=== PATIENT | female | born 1935 | race Caucasian/White ===

== ENCOUNTER 2017-03-20 16:27 | Inpatient (IN) | payer MEDICARE, BC ==
[~2017-03-20] VITALS: Ht 152.4 cm; Wt 62.1 kg
[2017-03-20 16:30] VITALS: BP 112/65
[2017-03-20] MEDS ORDERED: HYDR25TA4 PO (16:46)
[2017-03-20] MEDS ORDERED: DONE10TA44 PO (16:46)
[2017-03-20] MEDS ORDERED: LOSA50TA21 PO (16:46)
[2017-03-20] MEDS ORDERED: MEMA28CA PO (16:46)
[2017-03-20] MEDS ORDERED: LEVO500T15 PO (16:46)
[2017-03-20] MEDS ORDERED: TEMAZEPAM 7.5 MG CAPSULE PO PRN (17:00)
[2017-03-20] MEDS ORDERED: MAGNESIUM HYDROXIDE 30 ML UDC PO PRN (17:00)
[2017-03-20] MEDS ORDERED: clonazePAM 0.5 MG TABLET PO PRN (17:00)
[2017-03-20] MEDS ORDERED: MAG HYDROX/AL HYDROX/SIMETH 30 ML UDC PO PRN (17:00)
[2017-03-20] MEDS ORDERED: ACETAMINOPHEN 325 MG TABLET PO PRN (17:00)
--- NOTE | 2017-03-20 18:39 | NUR ---
GPS RN ADMITTING NOTES: ADMITTED PATIENT FROM [facility], WHERE SHE STAYED OVERNIGHT, PER EMT. PATIENT ARRIVED TO THE UNIT 1700 ON A GURNEY. PATIENT IS ON 51/50 HOLD FOR GRAVE DISABILITY. PATIENT IS A/O X1, CONFUSED, DISORIENTED, MUMBLING INCOHERENTLY, NON-VERBAL MOST OF THE TIME. PATIENT'S BELONGINGS CHECKED FOR CONTRABAND. PATIENT IS UNABLE TO SIGN ADMISSION PAPERWORK. BODY CHECK DONE AND PICTURES DOCUMENTED IN THE CHART, MRSA SWAB DONE AND ORDERED. PATIENT'S DAUGHTER, CURT SIMPSON NOTIFIED. DR. RAMIREZ CALLED, ADMITTING ORDERS RECEIVED AND CARRIED OUT. DR. TEMPLE MADE AWARE TO RECONCILE THE MEDICATIONS. PATIENT'S VS STABLE AT THIS TIME, NO S/S OF DISTRESS, CONTINUE TO MONITOR THE PATIENT AND ENDORSE TO THE FINANCIAL PROCESSING CLERK ACCORDINGLY.
[2017-03-20 20:00] VITALS: BP 119/79
[2017-03-21 08:00] VITALS: BP 134/76
[2017-03-21 08:20] LABS: ALANINE AMINOTRANSFERASE 32 U/L (12-78); ALBUMIN 3.4 g/dL (3.4-5.0); ALKALINE PHOSPHATASE 101 U/L (46-116); ASPARTATE AMINOTRANSFERASE 22 U/L (15-37); BILIRUBIN,TOTAL 0.6 mg/dL (0.2-1.0); CALCIUM, SERUM 8.7 mg/dL (8.5-10.1); CARBON DIOXIDE 26 mmol/L (21-32); CHLORIDE 108 mmol/L (98-107); GLUCOSE 87 mg/dL (74-106); SODIUM SERUM 143 mmol/L (136-145); TOTAL PROTEIN, SERUM 6.6 g/dL (6.4-8.2); UREA NITROGEN, BLOOD 26 mg/dL (7-18)
[2017-03-21] MEDS: HYDROCHLOROTHIAZIDE 25 MG TABLET PO SCH (08:44)
[2017-03-21] MEDS: LOSARTAN POTASSIUM 50 MG TABLET PO SCH (08:44)
[2017-03-21] MEDS: busPIRone 5 MG TABLET PO SCH ×2 (13:29→16:19)
[2017-03-21 16:00] VITALS: BP 121/59
[2017-03-21] MEDS: DONEPEZIL 5 MG TABLET PO SCH ×2 (16:19→21:07)
[2017-03-21] MEDS: MEMANTINE HCL 5 MG TABLET PO SCH (16:19)
--- NOTE | 2017-03-21 16:23 | NUR ---
WIV-DR-WVYXY: GAVE KLONOPIN 0.25 MG PO DUE TO SEVERE ANXIETY UPON PT REQUEST AND WILL CONTINUE TO MONITOR FOR EFFECTIVENESS OF MEDICATION
[2017-03-21] MEDS ORDERED: LEVOFLOXACIN (500MG) 500 MG TABLET PO SCH (17:00)
[2017-03-21 20:12] VITALS: BP 137/73
[2017-03-21] MEDS: MIRTAZAPINE 15 MG TABLET PO SCH (21:06)
[2017-03-22 07:49] VITALS: BP 113/54
[2017-03-22] MEDS: MEMANTINE HCL 5 MG TABLET PO SCH ×2 (08:31→17:57)
[2017-03-22] MEDS: LOSARTAN POTASSIUM 50 MG TABLET PO SCH (08:32)
[2017-03-22] MEDS: busPIRone 5 MG TABLET PO SCH ×2 (08:32→17:57)
[2017-03-22] MEDS: HYDROCHLOROTHIAZIDE 25 MG TABLET PO SCH (08:32)
[2017-03-22 15:42] VITALS: BP 110/69
[2017-03-22 19:34] VITALS: BP 135/77
[2017-03-22] MEDS: MIRTAZAPINE 15 MG TABLET PO SCH (20:57)
[2017-03-22] MEDS: DONEPEZIL 5 MG TABLET PO SCH (21:04)
[2017-03-23 08:00] VITALS: BP 113/67
[2017-03-23] MEDS: busPIRone 5 MG TABLET PO SCH ×2 (08:23→16:28)
[2017-03-23] MEDS: MEMANTINE HCL 5 MG TABLET PO SCH ×2 (08:23→16:27)
[2017-03-23] MEDS: LOSARTAN POTASSIUM 50 MG TABLET PO SCH (08:23)
[2017-03-23] MEDS: HYDROCHLOROTHIAZIDE 25 MG TABLET PO SCH (08:24)
--- NOTE | 2017-03-23 13:24 | NUR ---
Initial Discharge Note: Patient lives home alone [address] [facility] ([phone]). telephone lineworker spoke to patient's daughter Cris Pires ([phone]) who confirmed that patient often stays home alone. Per daughter, she would want her mother to be placed. telephone lineworker will help form a safe and proper discharge.
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
[2017-03-23 16:00] VITALS: BP 130/64
[2017-03-23 20:03] VITALS: BP 131/87
[2017-03-23] MEDS: MIRTAZAPINE 15 MG TABLET PO SCH (20:45)
[2017-03-23] MEDS: DONEPEZIL 5 MG TABLET PO SCH (21:00)
[2017-03-24 08:00] VITALS: BP 110/58
[2017-03-24] MEDS: LOSARTAN POTASSIUM 50 MG TABLET PO SCH (08:43)
[2017-03-24] MEDS: HYDROCHLOROTHIAZIDE 25 MG TABLET PO SCH (08:44)
[2017-03-24] MEDS: busPIRone 5 MG TABLET PO SCH ×2 (08:44→17:04)
[2017-03-24] MEDS: MEMANTINE HCL 5 MG TABLET PO SCH ×2 (10:02→17:04)
--- NOTE | 2017-03-24 11:16 | NUR ---
auto body worker faxed initial review packet to [facility] [phone]) [address] [place] [address]. auto body worker will follow-up.
[2017-03-24 16:00] VITALS: BP 131/62
[2017-03-24 20:14] VITALS: BP 134/62
[2017-03-24] MEDS: MIRTAZAPINE 15 MG TABLET PO SCH (20:54)
[2017-03-24] MEDS: DONEPEZIL 5 MG TABLET PO SCH (21:06)
[2017-03-25 08:00] VITALS: BP 107/66
[2017-03-25] MEDS: busPIRone 5 MG TABLET PO SCH ×2 (09:36→16:15)
[2017-03-25] MEDS: LOSARTAN POTASSIUM 50 MG TABLET PO SCH (09:36)
[2017-03-25] MEDS: MEMANTINE HCL 5 MG TABLET PO SCH ×2 (09:36→16:15)
[2017-03-25] MEDS: HYDROCHLOROTHIAZIDE 25 MG TABLET PO SCH (09:36)
--- NOTE | 2017-03-25 09:37 | NUR ---
packing room worker followed up with [facility] ([phone]) [address] [place] [address] and they have no beds available at the moment.
--- NOTE | 2017-03-25 09:38 | NUR ---
shore worker faxed initial review packet to [facility] [address] [place] [address] ([phone]). shore worker will follow-up.
[2017-03-25 16:19] VITALS: BP 116/71
[2017-03-25 20:00] VITALS: BP 115/67
[2017-03-25] MEDS: MIRTAZAPINE 15 MG TABLET PO SCH (20:29)
[2017-03-25] MEDS: DONEPEZIL 5 MG TABLET PO SCH (21:20)
--- NOTE | 2017-03-26 07:03 | NUR ---
RN GPS NOTES BOTH LEGS SCABS NOTED AND LEFT KNEE ABRASIONS NOTED PICTURE TAKEN AND PLACED IN THE CHART.ENDORSE TO NEXT SHIFT FOR CONTINUITY OF CARE . Addendum: 03/26/17 at 1853 by LINH RHODES RN DOCUMENTION IS NOT FOR THIS PATIENT
[2017-03-26 08:00] VITALS: BP 114/63
[2017-03-26] MEDS: HYDROCHLOROTHIAZIDE 25 MG TABLET PO SCH (08:02)
[2017-03-26] MEDS: MEMANTINE HCL 5 MG TABLET PO SCH ×2 (08:02→16:32)
[2017-03-26] MEDS: busPIRone 5 MG TABLET PO SCH ×2 (08:03→16:31)
[2017-03-26] MEDS: LOSARTAN POTASSIUM 50 MG TABLET PO SCH (08:03)
[2017-03-26 16:00] VITALS: BP_SYST 108; BP_SYST 132; BP_DIAS 71; BP_DIAS 82
[2017-03-26] MEDS: MIRTAZAPINE 15 MG TABLET PO SCH (19:39)
[2017-03-26 20:00] VITALS: BP 100/64
[2017-03-26] MEDS: DONEPEZIL 5 MG TABLET PO SCH (21:37)
--- NOTE | 2017-03-27 07:30 | NUR ---
GPS RN: RECEIVED PATIENT IN BED, CONFUSED AND DISORIENTED. NO S/S OF ACUTE DISTRESS, NO S/S OF PAIN OR DISCOMFORT, VS STABLE, RESPIRATION EVEN AND UNLABORED, SKIN WARM TO TOUCH, ALL BED IN A LOW POSITION AND LOCKED. BED ALARM IS ON, SR ARE UP X2 FOR SAFETY. PATIENT NOTED WITH PURPLE DISCOLORATION ON HER LEFT CHEEK. WILL TAKE PICTURES AND DOCUMENT IN THE CHART.
[2017-03-27 08:00] VITALS: BP 139/83
[2017-03-27] MEDS: MEMANTINE HCL 5 MG TABLET PO SCH ×2 (08:37→16:36)
[2017-03-27] MEDS: HYDROCHLOROTHIAZIDE 25 MG TABLET PO SCH (08:37)
[2017-03-27] MEDS: LOSARTAN POTASSIUM 50 MG TABLET PO SCH (08:37)
[2017-03-27] MEDS: busPIRone 5 MG TABLET PO SCH ×2 (08:38→16:36)
[2017-03-27 16:13] VITALS: BP 100/58
[2017-03-27 20:00] VITALS: BP 103/64
[2017-03-27] MEDS: MIRTAZAPINE 15 MG TABLET PO SCH (20:03)
--- NOTE | 2017-03-27 20:20 | NUR ---
GPS/RN NOTE: PATIENT AWAKE, ALERT, UP ON THE ROQUE-CHAIR. NO APPARENT DISTRESS NOTED.
[2017-03-27] MEDS: DONEPEZIL 5 MG TABLET PO SCH (22:49)
[2017-03-28 08:00] VITALS: BP 106/55
[2017-03-28] MEDS: LOSARTAN POTASSIUM 50 MG TABLET PO SCH (09:00)
[2017-03-28] MEDS: HYDROCHLOROTHIAZIDE 25 MG TABLET PO SCH (09:00)
[2017-03-28] MEDS: MEMANTINE HCL 5 MG TABLET PO SCH ×3 (09:00→17:54)
[2017-03-28] MEDS: busPIRone 5 MG TABLET PO SCH ×3 (09:00→17:54)
--- NOTE | 2017-03-28 09:00 | NUR ---
gps rn notes received patient in the room, sleeping, arousal when called name or torched, no respiratory distress, no acute distress, v/s stable, held medication, assist turn and reposition q 2 hr, safety precaution maintained all the time, both medical, and psych md's aware of. call huang near to reach, side rails up x3. continued monitoring for safety.
[2017-03-28] MEDS: BOOST PLUS FOOD-VANILLA 237 ML BOX PO SCH ×2 (09:11→17:55)
[2017-03-28] MEDS ORDERED: Z GUARD REMEDY 2 OZ OINT TP PRN (15:30)
[2017-03-28 16:00] VITALS: BP 108/65
[2017-03-28 19:42] VITALS: BP 110/67
--- NOTE | 2017-03-28 19:45 | NUR ---
GPS/RN NOTE: PATIENT LYING IN BED, RESTING, COMFORTABLE, NO ACUTE DISTRESS NOTED.
[2017-03-28] MEDS: DONEPEZIL 5 MG TABLET PO SCH (21:40)
[2017-03-29 08:00] VITALS: BP 108/73
[2017-03-29] MEDS: HYDROCHLOROTHIAZIDE 25 MG TABLET PO SCH (08:53)
[2017-03-29] MEDS: MEMANTINE HCL 5 MG TABLET PO SCH ×2 (08:54→16:50)
[2017-03-29] MEDS: busPIRone 5 MG TABLET PO SCH ×2 (08:54→16:50)
[2017-03-29] MEDS: LOSARTAN POTASSIUM 50 MG TABLET PO SCH (08:55)
[2017-03-29] MEDS ORDERED: SERTRALINE HCL 25 MG TABLET PO SCH (09:00)
[2017-03-29] MEDS: BOOST PLUS FOOD-VANILLA 237 ML BOX PO SCH ×2 (09:02→16:51)
[2017-03-29 16:00] VITALS: BP 133/65
[2017-03-29 20:06] VITALS: BP 145/69
[2017-03-29] MEDS: DONEPEZIL 5 MG TABLET PO SCH (21:22)
[2017-03-30 08:00] VITALS: BP 142/75
[2017-03-30] MEDS: HYDROCHLOROTHIAZIDE 25 MG TABLET PO SCH (08:48)
[2017-03-30] MEDS: BOOST PLUS FOOD-VANILLA 237 ML BOX PO SCH (08:48)
[2017-03-30 08:49] VITALS: BP 142/75
[2017-03-30] MEDS: busPIRone 5 MG TABLET PO SCH (08:49)
[2017-03-30] MEDS: LOSARTAN POTASSIUM 50 MG TABLET PO SCH (08:49)
[2017-03-30] MEDS: MEMANTINE HCL 5 MG TABLET PO SCH (08:49)
[2017-03-30] MEDS ORDERED: SERTRALINE HCL 25 MG TABLET PO SCH (09:00)
--- NOTE | 2017-03-30 14:12 | NUR ---
Discharge Note: Patient will be discharged to [facility] [address] [place] [address]. . Via med response. Patient's daughter Cris Pires ([phone]) has been notified. Patient's daughter was agreeable with the discharge plan. Patient's mood and affect are appropriate. Patient denies suicidal and homicidal ideations. Patient will follow-up with psychiatrist Dr. Lainez , at the facility. forestry conservation worker informed [facility] social media developer Jessica Cazares ([phone]/ cell: [phone]) to inform her of patient's discharge. Facilitated info to IDT team who are in agreement with discharge arrangement. The multidisciplinary exitcare form was done, printed, signed, and given to the patient.
--- NOTE | 2017-03-30 15:52 | NUR ---
DISCHARGE NOTES/ PATIENT DISCHARGE FROM [facility] GOING SNF. PATIENT A/O X1/2. NO RESPIRATORY DISTRESS, PATIENT MED COMPLIANT, V/S STABLE, MEDICALLY STABLE, TOTAL CARE. PATIENT DENIED SI/HI/AVH AT THIS TIME. MED RECONCILIATION, AND DISCHARGE ORDER REVIEWED AND EXPLAINED TO. REPORT GIVEN SNF RN. RN VERBALIZED UNDERSTANDING. BELONGING RETURNED BACK TO THE PATIENT. PICTURE TAKEN, PATIENT REFUSED SIGN PAPERWORK. DR EMERY, AND [employer] WILL FOLLOW PATIENT . PATIENT WEIGHT SHIFTER BY AMBULANCE. PATIENT DAUGHTER [facility] AWARE OF DISCHARGE PHONE # [phone].
== END 2017-03-30 15:52 | DRG 885 ==
LOC: GPS 16:27
PROVIDERS: ADMIT Psychiatry & Neurology Psychiatry; ATTEND Psychiatry & Neurology Psychiatry
DX: F39 Unspecified mood [affective] disorder (principal); F02.80 Dementia in other diseases classified elsewhere, unspecified severity, without behavioral disturbance, psychotic disturbance, mood disturbance, and anxiety; G30.9 Alzheimer's disease, unspecified; F41.9 Anxiety disorder, unspecified; F01.50 Vascular dementia, unspecified severity, without behavioral disturbance, psychotic disturbance, mood disturbance, and anxiety; I10 Essential (primary) hypertension; Z86.73 Personal history of transient ischemic attack (TIA), and cerebral infarction without residual deficits; Z73.6 Limitation of activities due to disability; Z87.440 Personal history of urinary (tract) infections; F29 Unspecified psychosis not due to a substance or known physiological condition
CPT/HCPCS: 36415; 80053-TC; 87081-TC

== ENCOUNTER 2017-07-02 23:47 | Inpatient (IN) | payer MEDICARE, BC ==
[~2017-07-02] VITALS: Ht 147.3 cm; Wt 49.9 kg
[~2017-07-02 23:47] MED LIST: HYDR25TA4 PO; LEVO500T75 PO; LOSA50TA21 PO
--- NOTE | 2017-07-03 00:24 | NUR ---
pt sent fr [facility] for abnormal lab, elevated BUN & Cr. pt nonverbal w/ resp even & unlabored, responds to painful stimuli w/ nad noted. On continuous pulse-ox w/ cardiac monitoring.
[2017-07-03 00:26] LABS: BASOPHILS % (AUTO) 0.1 % (0.0-2.0); EOSINOPHILS % (AUTO) 0.7 % (0.0-6.0); HEMATOCRIT 29 % (33-45); HEMOGLOBIN 10.1 g/dL (11.5-14.8); LYMPHOCYTES # (AUTO) 0.8 /CMM (0.8-4.8); LYMPHOCYTES % (AUTO) 15.2 % (20.0-44.0); MEAN CORPUSCULAR HEMOGLOBIN 31 PG (26.0-33.0); MEAN CORPUSCULAR HGB CONC 35 g/dl (31.0-36.0); MEAN CORPUSCULAR VOLUME 90 fL (82-100); MONOCYTES # (AUTO) 0.5 /CMM (0.1-1.30); MONOCYTES % (AUTO) 9.9 % (2.0-12.0); NEUTROPHILS # (AUTO) 3.9 /CMM (1.8-8.9); NEUTROPHILS % (AUTO) 74.1 % (43.0-81.0); PLATELET COUNT (AUTO) 156 /CMM (150-450); RDW COEFFICIENT OF VARIATION 13.6 (11.5-15.0); RED BLOOD CELL COUNT(AUTO) 3.26 MIL/uL (4.0-5.2); WHITE BLOOD COUNT (AUTO) 5.3 K/uL (4.3-11.0)
[2017-07-03 00:38] LABS: CALCIUM, SERUM 8.4 mg/dL (8.5-10.1); CARBON DIOXIDE 27 mmol/L (21-32); CHLORIDE 111 mmol/L (98-107); GLUCOSE 99 mg/dL (74-106); POTASSIUM 3.2 mmol/L (3.5-5.1); SODIUM SERUM 146 mmol/L (136-145); UREA NITROGEN, BLOOD 29 mg/dL (7-18)
[2017-07-03 00:48] LABS: ALANINE AMINOTRANSFERASE 23 U/L (12-78); ALBUMIN 2.8 g/dL (3.4-5.0); ALKALINE PHOSPHATASE 98 U/L (46-116); ASPARTATE AMINOTRANSFERASE 26 U/L (15-37); BILIRUBIN,DIRECT 0.1 mg/dL (0.0-0.2); BILIRUBIN,TOTAL 0.4 mg/dL (0.2-1.0); TOTAL PROTEIN, SERUM 6.6 g/dL (6.4-8.2); TROPONIN I 0.018 ng/mL (0.00-0.056)
[2017-07-03] MEDS ORDERED: ACETAMINOPHEN 325 MG TABLET PO PRN (01:30)
[2017-07-03] MEDS ORDERED: MAGNESIUM HYDROXIDE 30 ML UDC PO PRN (01:30)
[2017-07-03] MEDS ORDERED: MAG HYDROX/AL HYDROX/SIMETH 30 ML UDC PO PRN (01:30)
[2017-07-03] MEDS ORDERED: Z GUARD REMEDY 2 OZ OINT TP PRN (01:30)
[2017-07-03] MEDS ORDERED: ZOLPIDEM TARTRATE 5 MG TABLET PO PRN (01:30)
[2017-07-03] MEDS ORDERED: MORPHINE SULFATE INJ 2 MG/ML DISP.SYRIN IV PRN (01:30)
[2017-07-03] MEDS ORDERED: ONDANSETRON HCL/PF 4 MG/2 ML VIAL IVP PRN (01:30)
[2017-07-03] MEDS ORDERED: HYDROCODONE/APAP 5/325MG 1 EACH TABLET PO PRN (01:30)
[2017-07-03] MEDS ORDERED: HYDROCODONE/APAP 10/325MG 1 EA TABLET PO PRN (01:30)
--- NOTE | 2017-07-03 01:43 | NUR ---
pt asleep in bed w/ resp even & unlabored, nad noted. On continuous monitoring.
--- NOTE | 2017-07-03 02:03 | NUR ---
Sent to CT.
--- NOTE | 2017-07-03 03:00 | NUR ---
REPORT GIVEN TO ELEANOR. PATEL FOR TRANSFER
[2017-07-03 03:30] VITALS: BP 122/77
--- NOTE | 2017-07-03 03:30 | NUR ---
RN NOTES RECEIVED PATIENT FROM ER WITH DX OF HEADACHE. PATIENT IS ALERT AND ORIENTED X1, UNABLE TO VERBALIZE NEEDS, WITH HISTORY OF DEMENTIA, NO SOB, TOLERATING 2LPM VIA NC, SPO2 95%, ON AUSCULTATION, LUNG SOUNDS ARE CLEAR, ABDOMEN SOFT AND NON-TENDER, ACTIVE BOWEL SOUNDS, PATIENT MOANING, INCOHERENT, INCONTINENT OF BOWEL AND BLADDER, SKIN ASSESSMENT PERFORMED, GIVEN SPONGE BATH UPON ARRIVAL, UNABLE TO ORIENT TO ROOM AND USE OF CALL LIGHT, REPOSITIONED FOR COMFORT, BED ALARM TURNED ON, WILL CONTINUE TO MONITOR.
--- NOTE | 2017-07-03 04:17 | NUR ---
RN NOTES CLARIFIED WITH DR. LARSEN, NO IV FLUIDS
[2017-07-03 07:02] VITALS: BP 122/77
[2017-07-03 08:00] VITALS: BP 128/67
--- NOTE | 2017-07-03 08:00 | NUR ---
RN-NOTES RECEIVED PATIENT SLEEPING IN HER BED WITH BREATHING EVEN AND NONLABORED. ON THERAPY AT 3 L/MIN. VIA N/C. NOTED PATIENT WITH EPISODE OF COUGHING,BILATERAL LUNGS CLEAR AT THIS TIME.. REPOSITIONED PATIENT. WILL CONT. MONITORING.
[2017-07-03] MEDS: IV D5/0.45 NACL 1,000 ML IV PRN ×2 (10:21→23:44)
[2017-07-03] MEDS: POTASSIUM CL. PREMIX PERIPHER. 50 ML IV SCH ×4 (10:38→15:33)
[2017-07-03 16:00] VITALS: BP 114/67
--- NOTE | 2017-07-03 19:25 | NUR ---
MS RN OPENING NOTES: RECEIVED PT IN BED ASLEEP AT THIS TIME. PT APPEARS TO BE LETHARGIC. PT ON 2LPM VIA NC AND IS TOLERATING WELL. PT IS NON-VERBAL. SCD PUMPS IN PLACE. PT HAS IV BEING INFUSED WITH D5 1/2 NS AT 100ML/HR. CALL LIGHT WITHIN PT'S REACH. BED KEPT IN LOW, LOCKED POSITION, AND SIDE RAILS X 2UP. WILL CONTINUE TO MONITOR PT.
--- NOTE | 2017-07-03 19:56 | NUR ---
RN-NOTES PATIENT SLEEPING IN HER BED NO ACUTE DISTRESS NOTED. PATIENT ON IV FLUID AT 100ML/HR INFUSING WELL. WELL TOLERATED. IV SITE ON LEFT ARM. NO S/SX OF COMPLICATION NOTED ON IV SITE. ENDORSE TO NIGHT NURSE FOR CONTINUITY OF CARE. UNABLE TO COLLECT URINE THIS SHIFT. ENDORSE TO INCOMING NURSE FOR COLLECTION OF URINE FOR URINALYSIS ORDER.
[2017-07-03 20:00] VITALS: BP 135/66
--- NOTE | 2017-07-04 00:05 | NUR ---
MS RN NOTES: PT KEEPS REMOVING NASAL CANNULA. 02 SAT WITHOUT NC IS 92%. WILL CONTINUE TO MONITOR.
[2017-07-04 05:44] LABS: APPEARANCE,URINE CLOUDY (CLEAR); BILIRUBIN,URINE NEGATIVE (NEGATIVE); BLOOD, URINE NEGATIVE Ery/uL (NEGATIVE); COLOR,URINE YELLOW (YELLOW); KETONES,URINE NEGATIVE (NEGATIVE); LEUKOCYTE ESTERASE ,URINE NEGATIVE (NEGATIVE); NITRITE, URINE POSITIVE (NEGATIVE); PROTEIN,URINE 1+ mg/dl (NEGATIVE); UGLUCOSE NEGATIVE (NEGATIVE)
[2017-07-04 06:06] LABS: BACTERIA,URINE Few /HPF (None Seen); RBC,URINE NONE SEEN /HPF (0-2); SQUAMOUS EPITHELIAL CELL,UR Rare /HPF (None Seen)
[2017-07-04 06:07] LABS: URINE AMORPHOUS URATE Moderate /HPF (None Seen)
--- NOTE | 2017-07-04 07:10 | NUR ---
MS RN CLOSING NOTES: ALL NEEDS WERE ATTENDED AND ANTICIPATED FOR. PT HAS BEEN LETHARGIC THROUGHOUT MY SHIFT. PT ALSO HAS BEEN NON-VERBAL. PT SATURATING ABOVE 90% WITHOUT NC. PT HAS IV BEING INFUSED WITH D5 1/2 NS AT 100ML/HR. URINE WAS OBTAINED AND SENT. CALL LIGHT WITHIN PT'S REACH. BED KEPT IN LOW, LOCKED POSITION, AND SIDE RAILS X 2UP. ENDORSED TO AM NURSE FOR BJ.
[2017-07-04 07:54] LABS: BASOPHILS % (AUTO) 0.1 % (0.0-2.0); EOSINOPHILS % (AUTO) 0.2 % (0.0-6.0); HEMATOCRIT 28 % (33-45); HEMOGLOBIN 9.9 g/dL (11.5-14.8); LYMPHOCYTES # (AUTO) 0.7 /CMM (0.8-4.8); MEAN CORPUSCULAR HEMOGLOBIN 34 PG (26.0-33.0); MEAN CORPUSCULAR HGB CONC 36 g/dl (31.0-36.0); MEAN CORPUSCULAR VOLUME 94 fL (82-100); MONOCYTES # (AUTO) 0.6 /CMM (0.1-1.30); MONOCYTES % (AUTO) 8.6 % (2.0-12.0); NEUTROPHILS # (AUTO) 5.9 /CMM (1.8-8.9); NEUTROPHILS % (AUTO) 81.1 % (43.0-81.0); PLATELET COUNT (AUTO) 164 /CMM (150-450); RDW COEFFICIENT OF VARIATION 13.2 (11.5-15.0); RED BLOOD CELL COUNT(AUTO) 2.92 MIL/uL (4.0-5.2); WHITE BLOOD COUNT (AUTO) 7.3 K/uL (4.3-11.0)
--- NOTE | 2017-07-04 07:57 | NUR ---
MS RN OPENING NOTE PATIENT IS ASLEEP, AWAKEN TO LIGHT PAIN ONLY. PATIENT APPEARS TO BE LETHARGIC. CHEST IS RISING EQUALLY BILATERALLY. SPO2 IS 94% ON ROOM AIR. ALL NEEDS ARE MET AT THIS TIME. PATIENT IS IN BED. BED IS LOCKED IN THE LOWEST POSITION, SIDE RAILS ARE P X3, BED ALARM IS ON. CALL LIGHT WITHIN REACH. PATIENT EDUCATED TO USE THE CALL LIGHT TO CALL FOR ASSISTANCE. PATIENT'S ROOM IS CLOSE TO NURSES STATION FOR VISUAL ACCESSIBILITY AT ALL TIMES. WILL ROUND HOURLY TO CHECK ON PATIENT. WILL CONTINUE TO ASSESS/MONITOR THROUGHOUT THE SHIFT.
[2017-07-04 08:00] VITALS: BP 109/69
[2017-07-04 08:40] LABS: CALCIUM, SERUM 8.4 mg/dL (8.5-10.1); CARBON DIOXIDE 27 mmol/L (21-32); CHLORIDE 110 mmol/L (98-107); CREATININE 0.9 mg/dL (0.6-1.3); GLUCOSE 143 mg/dL (74-106); MAGNESIUM 1.8 mg/dL (1.8-2.4); POTASSIUM 3.3 mmol/L (3.5-5.1); SODIUM SERUM 146 mmol/L (136-145); UREA NITROGEN, BLOOD 20 mg/dL (7-18)
--- NOTE | 2017-07-04 09:13 | NUR ---
DR DANIELS AT THE BEDSIDE. RECEIVED AN ORDER FOR ABG, NPO AND TO CHANGE THE CODE STATUS TO DNR. WILL FOLLOW THEORDERS RECEIVED.
--- NOTE | 2017-07-04 10:30 | NUR ---
POTASSIUM NOT AVALIBLE IN THE OMNICELL. CALLED PHARMACY
--- NOTE | 2017-07-04 10:40 | NUR ---
PER PHARMACY THE POTASSIUM WILL BE DELIVERED AND PLACED IN THE CASETTE SHORTLY. WILL ADMINISTER ONCE AVAILABLE.
--- NOTE | 2017-07-04 11:20 | NUR ---
POTASSIUM STILL NOT AVAILABLE ON THE FLOOR
--- NOTE | 2017-07-04 11:45 | NUR ---
ADMINISTERING POTASSIUM ONCE AVAILABLE
[2017-07-04] MEDS: POTASSIUM CL. PREMIX PERIPHER. 50 ML IV SCH ×4 (11:47→16:02)
[2017-07-04] MEDS: IV D5/0.45 NACL 1,000 ML IV PRN (11:50)
[2017-07-04 12:26] LABS: ABG BASE EXCESS 1.1 mmol/L; ABG OXYGEN SATURATION 89.2 % (92.0-98.5); ABG PO2 52.7 mmHg (75.0-100.0); AaDO2 59.9 mmHg; MetHb 0.4 % (0.0-1.5); O2Hb 88.8 % (94.0-97.0); SITE, ABG Left Radial; VENT MODE, BG ROOM AIR
[2017-07-04] MEDS ORDERED: K PHOS NEUTRAL 250 MG TABLET PO ONE (13:00)
[2017-07-04] MEDS: TOBRAMYCIN/DEXAMETH OPHTH DORPS 2.5 ML BOTTLE EACHEYE SCH ×3 (13:17→23:16)
--- NOTE | 2017-07-04 14:10 | NUR ---
Patient removed nasal cannula. Desaturated to 91% on RA. Nasal cannula reapplied.
--- NOTE | 2017-07-04 14:52 | NUR ---
Patient removed nasal cannula. Desaturated to 89% on RA. Nasal cannula reapplied. Currently saturated 95% on 2 L
--- NOTE | 2017-07-04 15:00 | NUR ---
Patient removed nasal cannula. Patient is unable to comprehend teachings not to remove the nasal cannula. All needs are met. Patient removes the nasal cannula as soon as applied.
--- NOTE | 2017-07-04 15:00 | NUR ---
Received a telephone order for Potassium Phosphate 15mmol replacement in two equally divided doses. Read back and verified.
--- NOTE | 2017-07-04 15:18 | NUR ---
REPORTED PATIENT'S ABG RESULTS TO DR. DANIELS OVER THE PHONE. REPORTED TO THAT THE PATIENT KEEPS REMOVING THE NASAL CANNULA LEADING TO DESATURATION. RECEIVED AN ORDER TO PLACE BILATERAL SOFT MITTENS. PER DR. DANIELS YCH CONSULT TO BE CONDUCTED BY DR. RAMIREZ. ORDERS READ BACK AND VERIFIED. WILL FOLLOW ORDERED.
[2017-07-04 16:00] VITALS: BP 118/61
--- NOTE | 2017-07-04 16:08 | NUR ---
PATIENT REMOVED NASAL CANNULA. DESATURATED TO 90% ON RA. BILATERAL MITTENS APPLIED TO PREVENT THE PATIENT FROM REMOVING THE NASAL CANNULA.
[2017-07-04] MEDS: POTASSIUM PHOSPHATE MM 7.5 MMOL in IV D5W 100 ML IV SCH ×2 (18:48→23:16)
--- NOTE | 2017-07-04 19:10 | NUR ---
MS RN CLOSING NOTE BEDSIDE SBAR REPORT GIVEN TO THE ELECTRIC GAS APPLIANCES DEMONSTRATOR NURSE. PATIENT IS ASLEEP, AWAKEN TO LIGHT PAIN ONLY. PATIENT APPEARS TO BE LETHARGIC. CHEST IS RISING EQUALLY BILATERALLY. SPO2 IS 94% ON ROOM AIR. ALL NEEDS ARE MET AT THIS TIME. PATIENT IS IN BED. BED IS LOCKED IN THE LOWEST POSITION, SIDE RAILS ARE P X3, BED ALARM IS ON. SOFT MITTENS APPLIED. PATIENT CHECKED EVERY 15MINUTES FOR SAFETY/COMFORT. CALL LIGHT WITHIN REACH. PATIENT EDUCATED TO USE THE CALL LIGHT TO CALL FOR ASSISTANCE. PATIENT'S ROOM IS CLOSE TO NURSES STATION FOR VISUAL ACCESSIBILITY AT ALL TIMES. ROUNDED HOURLY. ALL DUE MEDICATIONS ADMINISTERED ORDERED. ENDORSED TO THE ELECTRIC GAS APPLIANCES DEMONSTRATOR TO ADMINISTER POTASSIUM PHOSPHATE WHEN DUE. ENDORSED TO ELECTRIC GAS APPLIANCES DEMONSTRATOR NURSE FOR BJ.
--- NOTE | 2017-07-04 19:20 | NUR ---
MS RN OPENING NOTES: RECEIVED PT IN BED. PT APPEARS TO BE LETHARGIC. PT NON-VERBAL. PT ON 2LPM VIA NC AND IS TOLERATING WELL. PT HAS R FOREARM IV BEING INFUSED WITH POTASSIUM AT THE MOMENT. NOTED PT ON BILATERAL SOFT MITTEN RESTRAINTS. CALL LIGHT WITHIN PT'S REACH. BED KEPT IN LOW, LOCKED POSITION, AND SIDE RAILS X 3 UP. WILL CONTINUE TO MONITOR PT.
[2017-07-04 20:45] VITALS: BP 122/71
[2017-07-05] MEDS: TOBRAMYCIN/DEXAMETH OPHTH DORPS 2.5 ML BOTTLE EACHEYE SCH ×6 (01:03→20:44)
[2017-07-05] MEDS: IV D5/0.45 NACL 1,000 ML IV PRN ×2 (06:08→20:44)
--- NOTE | 2017-07-05 07:05 | NUR ---
ms rn initial notes Received patient in bed, asleep, head of bed elevated, on 02 @ 2lpm via NC with 02 saturation of 94%. Bilateral hand mittens on. no SOB or distress noted. on NPO right forearm IV access with IVF infusing well. no facial grimace noted. Kept patient clean and comfortable in bed, call light with in patient reach. Will continue to monitor accordingly.
--- NOTE | 2017-07-05 07:45 | NUR ---
MS RN CLOSING NOTES: ALL NEEDS WERE ATTENDED AND ANTICIPATED FOR. PT KEPT CLEAN, DRY, AND COMFORTABLE. PT STILL APPEARS TO BE LETHARGIC. PT REMAINED NON-VERBAL. PT ON 2LPM VIA NC AND IS TOLERATING WELL. PT HAS R FOREARM IV BEING INFUSED WITH D5 1/2 NS AT 100ML/HR. PT ON BILATERAL SOFT MITTEN RESTRAINTS. 2 HOUR CHECKS HAVE BEEN MADE. CALL LIGHT WITHIN PT'S REACH. BED KEPT IN LOW, LOCKED POSITION, AND SIDE RAILS X 3 UP. ENDORSED TO AM NURSE FOR BJ.
[2017-07-05 08:00] VITALS: BP_SYST 116; BP_SYST 149; BP_DIAS 74; BP_DIAS 75
[2017-07-05 09:37] LABS: CALCIUM, SERUM 8.3 mg/dL (8.5-10.1); CARBON DIOXIDE 27 mmol/L (21-32); CHLORIDE 108 mmol/L (98-107); CREATININE 0.9 mg/dL (0.6-1.3); GLUCOSE 131 mg/dL (74-106); PHOSPHORUS 2.3 mg/dL (2.5-4.9); POTASSIUM 3.7 mmol/L (3.5-5.1); SODIUM SERUM 141 mmol/L (136-145); UREA NITROGEN, BLOOD 14 mg/dL (7-18)
[2017-07-05] MEDS ORDERED: Sodium Phosphate 15 MMOL in IV D5W 250 ML IV ONE (13:30)
[2017-07-05 16:00] VITALS: BP 119/62
[2017-07-05 19:11] LABS: THYROID STIMULATING HORMONE 0.706 uIU/mL (0.358-3.74)
--- NOTE | 2017-07-05 19:23 | NUR ---
RN NOTES A/O X 1, NON VERBAL, PT IN STABLE CONDITION, NO S/S OF DISTRESS. SAFETY MEASURES ARE IN PLACE, CALL LIGHT IS IN REACH. WILL CONTINUE TO MONITOR.
--- NOTE | 2017-07-05 19:28 | NUR ---
ms rn closing notes All needs provided, attended, and anticipated. kept patient clean and comfortable in bed, call light with in patient reach, endorsed to next shift RN to continue care.
[2017-07-05 20:00] VITALS: BP 115/63
[2017-07-06] MEDS: TOBRAMYCIN/DEXAMETH OPHTH DORPS 2.5 ML BOTTLE EACHEYE SCH ×6 (01:24→20:12)
--- NOTE | 2017-07-06 06:38 | NUR ---
MS RN CLOSING NOTES IN BED, PATIENT RESPONSIVE TO TOUCH AND TACTILE STIMULATION, NON VERBAL, OPEN EYES, RESPIRATIONS EVEN AND UNLABORED. NOT IN S/S DISTRESS. ON 2LPM VIA NC 02 SAT 96% STABLE CONDITION. KEPT CLEAN AND DRY AND COMFORTABLE, ALL NURSING CARE RENDERED. NEEDS ATTENDED AND ANTICIPATED, FREQUENT VISUAL CHECK DONE FOR SAFETY EVERY 2 HOURS. REPOSITIONED Q2H. ON LOW BED AT ALL TIMES TO ENSURE SAFETY. SAFE HAZARD FREE ENVIRONMENT PROVIDED. CALL LIGHT WITHIN EASY TO REACH. WILL ENDORSE NEXT SHIFT CONTINUITY OF CARE.
--- NOTE | 2017-07-06 07:10 | NUR ---
ms rn initial notes Received patient in bed, asleep, head of bed elevated, no SOB or distress noted. On 02 @ 2LPM via NC with 02 sat of 98%. On bilateral hand mittens due to patient is removing her IV and 02 out. IV intact and patent with IVF infusing well. Kept patient clean and comfortable in bed, call light with in patient reach, will continue to monitor accordingly.
[2017-07-06 08:00] VITALS: BP 125/74
[2017-07-06] MEDS ORDERED: POTASSIUM PHOSPHATE MM 15 MMOL in IV D5W 250 ML IV SCH (13:00)
[2017-07-06] MEDS ORDERED: LEVOFLOXACIN 500 MG /D5W 100ML 500 MG in PREMIX 1 EA IV ONE (14:00)
[2017-07-06] MEDS: Potassium Phosphate meq 11 MEQ in IV D5W 100 ML IV SCH ×2 (15:49→17:35)
[2017-07-06 16:00] VITALS: BP 123/69
--- NOTE | 2017-07-06 19:00 | NUR ---
RN NOTES PT NON VERBAL ASLEEP AND EASILY AWAKEN, PT IN STABLE CONDITION, NO S/S OF DISTRESS. SAFETY MEASURES ARE IN PLACE, CALL LIGHT IS IN REACH. WILL CONTINUE TO MONITOR.
--- NOTE | 2017-07-06 19:14 | NUR ---
ms rn closing notes All needs provided, attended, and anticipated, kept patient clean and comfortable in bed, call light with in patient reach, endorsed to next shift RN to continue care.
[2017-07-06 20:00] VITALS: BP 126/72
[2017-07-06] MEDS: IV D5/0.45 NACL 1,000 ML IV PRN (20:12)
[2017-07-07] MEDS: TOBRAMYCIN/DEXAMETH OPHTH DORPS 2.5 ML BOTTLE EACHEYE SCH ×6 (00:23→21:39)
--- NOTE | 2017-07-07 06:38 | NUR ---
MS RN CLOSING NOTES ASLEEP AND EASILY AWAKEN, STABLE CONDITION. ON 2LPM VIA NC 02 SAT 95% RESPIRATIONS EVEN AND UNLABORED. KEPT CLEAN AND DRY AND COMFORTABLE, ALL NURSING CARE RENDERED. NEEDS ATTENDED AND ANTICIPATED, FREQUENT VISUAL CHECK DONE FOR SAFETY EVERY 2 HOURS. ON LOW BED AT ALL TIMES TO ENSURE SAFETY. SAFE HAZARD FREE ENVIRONMENT PROVIDED. CALL LIGHT WITHIN EASY TO REACH. WILL ENDORSE NEXT SHIFT CONTINUITY OF CARE. ASSIST REPOSITION PT Q2H.
[2017-07-07 07:35] LABS: BASOPHILS % (AUTO) 0.1 % (0.0-2.0); EOSINOPHILS # (AUTO) 0.1 /CMM (0.0-0.7); EOSINOPHILS % (AUTO) 1.8 % (0.0-6.0); HEMATOCRIT 28 % (33-45); HEMOGLOBIN 9.9 g/dL (11.5-14.8); LYMPHOCYTES # (AUTO) 0.4 /CMM (0.8-4.8); LYMPHOCYTES % (AUTO) 5.9 % (20.0-44.0); MEAN CORPUSCULAR HEMOGLOBIN 32 PG (26.0-33.0); MEAN CORPUSCULAR HGB CONC 35 g/dl (31.0-36.0); MEAN CORPUSCULAR VOLUME 92 fL (82-100); MONOCYTES # (AUTO) 0.5 /CMM (0.1-1.30); MONOCYTES % (AUTO) 7.9 % (2.0-12.0); NEUTROPHILS # (AUTO) 5.8 /CMM (1.8-8.9); NEUTROPHILS % (AUTO) 84.3 % (43.0-81.0); PLATELET COUNT (AUTO) 232 /CMM (150-450); RDW COEFFICIENT OF VARIATION 12.8 (11.5-15.0); RED BLOOD CELL COUNT(AUTO) 3.09 MIL/uL (4.0-5.2); WHITE BLOOD COUNT (AUTO) 6.9 K/uL (4.3-11.0)
[2017-07-07 08:00] VITALS: BP 125/73
--- NOTE | 2017-07-07 08:00 | NUR ---
MS ANDREAS AM NOTES: RECEIVED PT IN BED. PT SLEEPING BUT AROUSABLE. TALKS OCCASIONALLY. PT ON 2LPM VIA NC AND IS TOLERATING WELL.WITH RT FA HEPLOCK INTACT-WITH ONGOING IVF OF D51/2 NS AT 100 ML/HR INFUSING WELL.PT ON BILATERAL SOFT MITTEN RESTRAINTS. CHECKED AND RELEASED FOR CIRCULATION.WITH GOOD CIRCULATION ON BUA.CALL LIGHT WITHIN PT'S REACH. BED KEPT IN LOW, LOCKED POSITION, AND SIDE RAILS X 3 UP. WILL CONTINUE TO MONITOR PT.
[2017-07-07 08:28] LABS: CALCIUM, SERUM 8.1 mg/dL (8.5-10.1); CARBON DIOXIDE 24 mmol/L (21-32); CHLORIDE 106 mmol/L (98-107); CREATININE 0.7 mg/dL (0.6-1.3); GLUCOSE 93 mg/dL (74-106); MAGNESIUM 1.4 mg/dL (1.8-2.4); PHOSPHORUS 2.4 mg/dL (2.5-4.9); POTASSIUM 3.5 mmol/L (3.5-5.1); SODIUM SERUM 141 mmol/L (136-145); UREA NITROGEN, BLOOD 11 mg/dL (7-18)
[2017-07-07] MEDS ORDERED: Magnesium 1GM/D5W 100ML PREMIX 100 ML IV SCH (12:23)
[2017-07-07] MEDS: LEVOFLOXACIN 250 MG /D5W 50 ML 250 MG in PREMIX 1 EA IV SCH (13:38)
[2017-07-07] MEDS: Magnesium 1GM/D5W 100ML PREMIX 100 ML IV SCH ×2 (14:57→17:14)
[2017-07-07 16:00] VITALS: BP 127/85
--- NOTE | 2017-07-07 18:30 | NUR ---
MS RN CLOSING NOTES: PATIENT IN BED, SLEEPING BUT AROUSABLE. TALKS OCCASIONALLY. PT ON 2LPM VIA NC AND IS TOLERATING WELL.WITH RT FA HEPLOCK INTACT-WITH ONGOING IVF OF D51/2 NS AT 100 ML/HR INFUSING WELL. NO REDNESS OR S/SX OF INFILTRATION NOTED. PT ON BILATERAL SOFT MITTEN RESTRAINTS. CHECKED AND RELEASED FOR CIRCULATION.WITH GOOD CIRCULATION ON BUA. DUE MEDICATIONS GIVEN. NO ASE NOTED. CALL LIGHT PLACED WITHIN REACH. BED KEPT IN LOW, LOCKED POSITION, AND SIDE RAILS X 3 UP. WILL ENDORSE TO CAGE MANAGER FOR CONTINUITY OF CARE.
--- NOTE | 2017-07-07 19:25 | NUR ---
MS RN OPENING NOTES Received patient in bed, awake with intermittent eyes open,, head of bed elevated, no SOB or distress noted. On 02 @ 2LPM via NC with 02 sat of 96%. On bilateral hand mittens due to patient is removing her IV and 02 out. IV intact and patent with IVF infusing well. will keep patient clean and comfortable in bed, call light with in patient reach, will continue to monitor accordingly.
[2017-07-07] MEDS: POTASSIUM PHOSPHATE MM 7.5 MMOL in IV D5W 100 ML IV SCH ×2 (19:58→22:37)
[2017-07-07 20:00] VITALS: BP 132/66
[2017-07-08] MEDS: IV D5/0.45 NACL 1,000 ML IV PRN (00:18)
--- NOTE | 2017-07-08 00:45 | NUR ---
IV SITE CHANGED IV SITE ON RAC NOTED TO BE INFILTRATED, ICU NURSE HELPED TO CHANGE THE IV SITE SINCE PT IS HARD STICK, WAS ABLE TO INSERT ON LAC WITH GOOD BLOOD FLOW RETURN. NO S/S OF INFILTRATION, REDNESS NOTED @ THIS TIME, PROCEDURE TOLERATED WELL.
[2017-07-08] MEDS ORDERED: ALBUTEROL FS 2.5 MG/3 ML VIAL.NEB ONE (01:41)
[2017-07-08] MEDS: ALBUTEROL FS 2.5 MG/3 ML VIAL.NEB NEB SCH ×4 (01:44→20:06)
[2017-07-08] MEDS: TOBRAMYCIN/DEXAMETH OPHTH DORPS 2.5 ML BOTTLE EACHEYE SCH ×6 (01:48→20:36)
--- NOTE | 2017-07-08 06:53 | NUR ---
MS RN CLOSING NOTES PATIENT IS RESTING IN BED, MOVING SOMETIMES. MUMBLES OCCASIONALLY. PT ON 2LPM VIA NC AND IS TOLERATING WELL.WITH LAC IV ACCESS ONGOING IVF OF D51/2 NS AT 50 ML/HR INFUSING WELL. NO REDNESS OR S/SX OF INFILTRATION NOTED. PT ON BILATERAL SOFT MITTEN RESTRAINTS. CHECKED AND RELEASED FOR CIRCULATION.WITH GOOD CIRCULATION ON BUA. DUE MEDICATIONS GIVEN. ALL NEEDS MET. KEPT CLEAN & DRY. NO ASE NOTED. CALL LIGHT PLACED WITHIN REACH. BED KEPT IN LOW, LOCKED POSITION, AND SIDE RAILS X 3 UP. WILL ENDORSE TO AM SHIFT FOR CONTINUITY OF CARE.
--- NOTE | 2017-07-08 07:30 | NUR ---
RN OPENING NOTES: RECEIVED PATIENT IN BED, SLEEPING BUT AROUSABLE. PATIENT ON 2LPM VIA NC AND IS TOLERATING WELL. IV SITE INTACT AND PATENT. PATIENT ON BILATERAL SOFT MITTEN RESTRAINTS, CHECKED AND RELEASED FOR CIRCULATION, WITH GOOD CIRCULATION ON BUA. KEPT PATIENT SAFE AND COMFORTABLE. BED IN LOW, LOCKED POSITION, AND SIDE RAILS X 3 UP. WILL CONTINUE TO MONITOR ACCORDINGLY. Addendum: 07/08/17 at 0759 by HIRA POND NO ACUTE DISTRESS, NO SOB NOTED, NO S/S OF PAIN OR DISCOMFORT.
[2017-07-08 08:00] VITALS: BP 134/66
[2017-07-08 08:30] VITALS: BP 134/66
[2017-07-08 11:40] LABS: CALCIUM, SERUM 8.6 mg/dL (8.5-10.1); CARBON DIOXIDE 27 mmol/L (21-32); CHLORIDE 105 mmol/L (98-107); CREATININE 0.8 mg/dL (0.6-1.3); GLUCOSE 115 mg/dL (74-106); MAGNESIUM 1.9 mg/dL (1.8-2.4); PHOSPHORUS 2.8 mg/dL (2.5-4.9); POTASSIUM 3.4 mmol/L (3.5-5.1); SODIUM SERUM 142 mmol/L (136-145); UREA NITROGEN, BLOOD 11 mg/dL (7-18)
[2017-07-08 14:47] LABS: BASOPHILS % (AUTO) 0.3 % (0.0-2.0); EOSINOPHILS % (AUTO) 0.5 % (0.0-6.0); HEMATOCRIT 31 % (33-45); HEMOGLOBIN 11.1 g/dL (11.5-14.8); LYMPHOCYTES # (AUTO) 0.6 /CMM (0.8-4.8); LYMPHOCYTES % (AUTO) 7.9 % (20.0-44.0); MEAN CORPUSCULAR HEMOGLOBIN 33 PG (26.0-33.0); MEAN CORPUSCULAR HGB CONC 36 g/dl (31.0-36.0); MEAN CORPUSCULAR VOLUME 92 fL (82-100); MONOCYTES # (AUTO) 0.8 /CMM (0.1-1.30); MONOCYTES % (AUTO) 11.1 % (2.0-12.0); NEUTROPHILS # (AUTO) 5.7 /CMM (1.8-8.9); NEUTROPHILS % (AUTO) 80.2 % (43.0-81.0); PLATELET COUNT (AUTO) 246 /CMM (150-450); RDW COEFFICIENT OF VARIATION 12.8 (11.5-15.0); RED BLOOD CELL COUNT(AUTO) 3.38 MIL/uL (4.0-5.2); WHITE BLOOD COUNT (AUTO) 7.1 K/uL (4.3-11.0)
[2017-07-08] MEDS: LEVOFLOXACIN 250 MG /D5W 50 ML 250 MG in PREMIX 1 EA IV SCH (15:02)
[2017-07-08 16:00] VITALS: BP 128/75
[2017-07-08 16:10] VITALS: BP 128/75
--- NOTE | 2017-07-08 19:30 | NUR ---
MS RN OPENING NOTES: RECEIVED PT IN BED WITH 2LPM VIA NC. BILATERAL SOFT MITTENS NOTED. CALL LIGHT WITHIN PT'S REACH. BED KEPT IN LOW, LOCKED POSITION, AND SIDE RAILS X 2UP. PT HAS IV NOTED AT L AC AND IS BEING INFUSED WITH D5 1/2 NS AT 50ML/HR. WILL CONTINUE TO MONITOR PT.
--- NOTE | 2017-07-08 19:30 | NUR ---
RN CLOSING NOTES PATIENT IN BED RESTING, RESPONSIVE. NO ACUTE DISTRESS, NO SOB NOTED. NO S/S OF PAIN OR DISCOMFORT. ALL NEEDS ATTENDED AND PROVIDED. BED IN LOW, LOCKED POSITION, SEMIFOWLERS, SIDRAILS UPX2, CALL LIGHT IN REACH. ENDORSED TO NIGHT RN FOR BJ.
[2017-07-08 20:00] VITALS: BP 121/71
--- NOTE | 2017-07-08 20:00 | NUR ---
MS RN NOTES: RT AT BEDSIDE AND APPLIED MASK ON PT AND IS NOW ON 6LPM. WILL MONITOR PT.
[2017-07-09] MEDS: TOBRAMYCIN/DEXAMETH OPHTH DORPS 2.5 ML BOTTLE EACHEYE SCH ×6 (00:10→22:00)
[2017-07-09] MEDS: ALBUTEROL FS 2.5 MG/3 ML VIAL.NEB NEB SCH ×4 (01:43→20:51)
--- NOTE | 2017-07-09 02:11 | NUR ---
MS RN NOTES: RT AT BEDSIDE AND SUCTIONED PATIENT.
--- NOTE | 2017-07-09 02:53 | NUR ---
MS RN NOTES: TEMPERATURE RECHECKED ON LEFT AXILLARY AND IS NOW 98.5 ;
[2017-07-09] MEDS: IV D5/0.45 NACL 1,000 ML IV PRN (03:48)
--- NOTE | 2017-07-09 07:05 | NUR ---
MS RN OPENING NOTES RECEIVED PT FROM NIGHTSHIFT NURSE IN BED WITH SOFT WRIST RESTRAINTS. PER NIGHTSHIFT, PT IS REMOVING INVASIVE LINES AND MEDICAL EQUIPMENT. PT IS A/O X1. SHE IS ON 6L VIA MASK AND SATING AT 95%. PT IS CURRENTLY USING HER ACCESSORY MUSCLES TO BREATH. RT NOTIFIED FOR SCHEDULED BREATHING TX AND DEEP SUCTIONING. IV NOTED TO BE PATENT AND INTACT. NO REDNESS OR SINS OF INFILTRATION NOTED. BED IN LOW LOCKED POSITION, SIDE RAILS UP X3, CALL LIGHT WITHIN REACH, BED ALARM ON. WILL CONTINUE TO CLOSELY MONITOR
--- NOTE | 2017-07-09 07:52 | NUR ---
MS RN CLOSING NOTES: ALL NEEDS WERE ATTENDED AND ANTICIPATED FOR. PT STILL ON BILATERAL SOFT MITTENS. PT ON 6LPM VIA MASK. 2 HOUR CHECKS ON RESTRAINTS PERFORMED. PT HAS IV ON R FOREARM #22G AND IS BEING INFUSED WITH D5 1/2 NS AT 50ML/HR. CALL LIGHT WITHIN PT'S REACH. BED KEPT IN LOW, LOCKED POSITION, AND SIDE RAILS X 2UP. ENDORSED TO AM NURSE FOR BJ.
[2017-07-09 08:00] VITALS: BP 134/82
[2017-07-09 08:10] LABS: BASOPHILS % (AUTO) 0.1 % (0.0-2.0); EOSINOPHILS % (AUTO) 0.2 % (0.0-6.0); HEMATOCRIT 28 % (33-45); HEMOGLOBIN 9.9 g/dL (11.5-14.8); LYMPHOCYTES # (AUTO) 0.6 /CMM (0.8-4.8); LYMPHOCYTES % (AUTO) 8.8 % (20.0-44.0); MEAN CORPUSCULAR HEMOGLOBIN 32 PG (26.0-33.0); MEAN CORPUSCULAR HGB CONC 35 g/dl (31.0-36.0); MEAN CORPUSCULAR VOLUME 93 fL (82-100); MONOCYTES % (AUTO) 13.6 % (2.0-12.0); NEUTROPHILS # (AUTO) 5.5 /CMM (1.8-8.9); NEUTROPHILS % (AUTO) 77.3 % (43.0-81.0); PLATELET COUNT (AUTO) 250 /CMM (150-450); RDW COEFFICIENT OF VARIATION 12.6 (11.5-15.0); RED BLOOD CELL COUNT(AUTO) 3.06 MIL/uL (4.0-5.2); WHITE BLOOD COUNT (AUTO) 7.2 K/uL (4.3-11.0)
[2017-07-09 08:59] LABS: CALCIUM, SERUM 8.6 mg/dL (8.5-10.1); CARBON DIOXIDE 26 mmol/L (21-32); CHLORIDE 104 mmol/L (98-107); CREATININE 0.6 mg/dL (0.6-1.3); GLUCOSE 122 mg/dL (74-106); MAGNESIUM 1.8 mg/dL (1.8-2.4); PHOSPHORUS 2.6 mg/dL (2.5-4.9); POTASSIUM 3.7 mmol/L (3.5-5.1); SODIUM SERUM 139 mmol/L (136-145); UREA NITROGEN, BLOOD 10 mg/dL (7-18)
[2017-07-09] MEDS: ACETYLCYSTEINE 10% SOLN 400 MG/4 ML VIAL NEB SCH ×2 (12:57→15:30)
[2017-07-09] MEDS: LEVOFLOXACIN 250 MG /D5W 50 ML 250 MG in PREMIX 1 EA IV SCH (13:10)
[2017-07-09 16:00] VITALS: BP 116/68
--- NOTE | 2017-07-09 18:32 | NUR ---
MS RN CLOSING NOTES NO ACUTE CHANGES IN PT'S CONDITION DURING SHIFT. DR. TEMPLE NOTIFIED OF PT'S CHEST X RAY RESULTS. NO NEW ORDERS GIVEN. PT REMAINS ON 6L O2 VIA MASK SHE SATS IN THE LOW 90S WHEN ON NC. SOFT RESTRAINTS D/C PT IS NO LONGER INTERFERING WITH MEDICAL EQUIPMENT AND INVASIVE LINES. ALL NEEDS MET AND ANTICIPATED FOR. ALL DUE MEDS GIVEN AND ORDERS CARRIED OUT ACCORDINGLY. SAFETY MEASURES REMAIN IN PLACE. WILL ENDORSE TO NIGHTSHIFT NURSE FOR BJ
--- NOTE | 2017-07-09 19:20 | NUR ---
MS/RN OPENING NOTES PT RECEIVED WITH EYES CLOSED, ON 6L O2 VIA SIMPLE MASK. USING ACCESSORY MUSCLES. AROUSABLE TO LIGHT PAIN. PT NPO STATUS. IV TO RIGHT FA PATENT AND INTACT. HOB ELEVATED FOR OPTIMAL LUNG EXPANSION. BED IN LOW/LOCKED POSITION WITH CALL LIGHT IN REACH. SIDE RAILS UPX3 AND BED ALARM ON FOR SAFETY. WILL CONTINUE TO MONITOR
[2017-07-09 20:00] VITALS: BP 125/65
[2017-07-10] MEDS: ACETYLCYSTEINE 10% SOLN 400 MG/4 ML VIAL NEB SCH ×4 (00:38→22:34)
[2017-07-10] MEDS: ALBUTEROL FS 2.5 MG/3 ML VIAL.NEB NEB SCH ×4 (00:39→19:29)
[2017-07-10] MEDS: TOBRAMYCIN/DEXAMETH OPHTH DORPS 2.5 ML BOTTLE EACHEYE SCH ×6 (01:21→20:39)
--- NOTE | 2017-07-10 06:28 | NUR ---
MS/RN CLOSING NOTES PT IN BED, OPENS EYES. NON VERBAL. REMAINS ON 6L O2 VIA SIMPLE MASK, STILL USING ACCESSORY MUSCLES, SATTING 97%. SCHEDULED BREATHING TX PROVIDED WITH SUCTIONING. IV TO RFA PATENT AND INTACT. TURNED/REPOSITIONED PT Q2H, HEELS OFFLOADED. NO SIGNIFICANT CHANGES OVERNIGHT. BED IN LOW/LOCKED POSITION WITH CALL LIGHT IN REACH. SIDE RAILS UPX3 AND BED ALARM ON FOR SAFETY. KEPT PT COMFORTABLE POSSIBLE DURING SHIFT. WILL ENDORSE TO DAY SHIFT RN BJ.
[2017-07-10 08:00] VITALS: BP 128/71
--- NOTE | 2017-07-10 08:00 | NUR ---
ms rn received on bed,w/ sob, crackles lungs, on os mask, saturating 92-93%, will monitor patient ,charge nurse is aware.will monitor.
[2017-07-10 08:15] LABS: BASOPHILS % (AUTO) 0.3 % (0.0-2.0); EOSINOPHILS % (AUTO) 0.8 % (0.0-6.0); HEMATOCRIT 27 % (33-45); HEMOGLOBIN 9.4 g/dL (11.5-14.8); LYMPHOCYTES # (AUTO) 0.5 /CMM (0.8-4.8); MEAN CORPUSCULAR HEMOGLOBIN 32 PG (26.0-33.0); MEAN CORPUSCULAR HGB CONC 35 g/dl (31.0-36.0); MEAN CORPUSCULAR VOLUME 92 fL (82-100); MONOCYTES # (AUTO) 0.7 /CMM (0.1-1.30); MONOCYTES % (AUTO) 13.6 % (2.0-12.0); NEUTROPHILS # (AUTO) 4.2 /CMM (1.8-8.9); NEUTROPHILS % (AUTO) 76.3 % (43.0-81.0); PLATELET COUNT (AUTO) 274 /CMM (150-450); RDW COEFFICIENT OF VARIATION 12.9 (11.5-15.0); RED BLOOD CELL COUNT(AUTO) 2.93 MIL/uL (4.0-5.2); WHITE BLOOD COUNT (AUTO) 5.4 K/uL (4.3-11.0)
[2017-07-10 08:34] LABS: CALCIUM, SERUM 8.5 mg/dL (8.5-10.1); CARBON DIOXIDE 29 mmol/L (21-32); CHLORIDE 105 mmol/L (98-107); CREATININE 0.6 mg/dL (0.6-1.3); GLUCOSE 108 mg/dL (74-106); MAGNESIUM 1.7 mg/dL (1.8-2.4); PHOSPHORUS 2.9 mg/dL (2.5-4.9); POTASSIUM 3.5 mmol/L (3.5-5.1); SODIUM SERUM 140 mmol/L (136-145); UREA NITROGEN, BLOOD 11 mg/dL (7-18)
--- NOTE | 2017-07-10 09:00 | NUR ---
ms rn npo at this time, will monitor patient's condition.
--- NOTE | 2017-07-10 10:00 | NUR ---
ms process engineering intern at bedside, waiting for
[2017-07-10] MEDS: Magnesium 1GM/D5W 100ML PREMIX 100 ML IV SCH ×2 (12:50→14:29)
--- NOTE | 2017-07-10 14:00 | NUR ---
ms rn was seen by dr. hermes kearns/ orders made and carriedout.
[2017-07-10] MEDS ORDERED: FEE PK DOSING 1 MIN EA MC ONE (14:33)
[2017-07-10 14:43] LABS: ABG BASE EXCESS 3.3 mmol/L; ABG OXYGEN SATURATION 97.5 % (92.0-98.5); ABG PCO2 49.6 mmHg (35.0-45.0); ABG PH 7.385 (7.350-7.450); ABG PO2 114.4 mmHg (75.0-100.0); AaDO2 186.3 mmHg; COHb 0.3 % (0.5-1.5); MetHb 0.5 % (0.0-1.5); O2Hb 96.7 % (94.0-97.0); SITE, ABG Right Radial; VENT MODE, BG SIMPLE MASK
[2017-07-10] MEDS: LEVOFLOXACIN 250 MG /D5W 50 ML 250 MG in PREMIX 1 EA IV SCH (15:46)
[2017-07-10 16:00] VITALS: BP 124/70
[2017-07-10] MEDS: VANCOMYCIN 1 GM in IV D5W 250 ML IV SCH (16:51)
--- NOTE | 2017-07-10 18:00 | NUR ---
ms rn on bed, no change of condition,all needs attended.
[2017-07-10] MEDS: PIPERACILLIN /TAZOBACTAM 3.375 G in IV D5W 50 ML IV SCH (18:17)
[2017-07-10 20:00] VITALS: BP 118/69
--- NOTE | 2017-07-10 20:39 | NUR ---
MS/RN OPENING NOTES PATIENTIN BED, ON OXYGEN MASK AT 10L, REQUIRING MONITORIN FRO SHORTNESS OF BREATYH HAVING SHALLOW BREATH, SKIN COOL TO TOUCH, PROVIDED WARM BLANKET, WILL CONTINUE TO MONITOR FOR SAFETY. RECEIVED ENDORSEMENT FROM AM RN FOR BJ.
[2017-07-11] MEDS: TOBRAMYCIN/DEXAMETH OPHTH DORPS 2.5 ML BOTTLE EACHEYE SCH ×6 (00:12→20:34)
[2017-07-11] MEDS: PIPERACILLIN /TAZOBACTAM 3.375 G in IV D5W 50 ML IV SCH ×5 (00:12→23:44)
[2017-07-11] MEDS: ALBUTEROL FS 2.5 MG/3 ML VIAL.NEB NEB SCH ×4 (01:41→20:06)
[2017-07-11] MEDS: VANCOMYCIN 1 GM in IV D5W 250 ML IV SCH ×2 (02:42→17:07)
--- NOTE | 2017-07-11 06:23 | NUR ---
324-1 MS/RN NOTES PATIENT NON VERBAL, LETHARGIC, AROUSES WITH TOUCH, CAN OPEN EYES AND MOVE UPPER ARM, MONITORING FOR ANY CHANGES, ON OXYGEN MASK DUE TO SOB, ON RT TX, TOLERATE, MONITORING FOR ANY CHANGES, CALL LIGHTS WITHIN REACH, BED IN LOCK POSITION, COOL TO TOUCH, WILL CONTINUE TO MONITOR.
[2017-07-11 06:58] LABS: BASOPHILS % (AUTO) 0.6 % (0.0-2.0); EOSINOPHILS # (AUTO) 0.1 /CMM (0.0-0.7); EOSINOPHILS % (AUTO) 2.4 % (0.0-6.0); HEMATOCRIT 27 % (33-45); HEMOGLOBIN 9.6 g/dL (11.5-14.8); LYMPHOCYTES # (AUTO) 0.5 /CMM (0.8-4.8); LYMPHOCYTES % (AUTO) 9.7 % (20.0-44.0); MEAN CORPUSCULAR HEMOGLOBIN 32 PG (26.0-33.0); MEAN CORPUSCULAR HGB CONC 35 g/dl (31.0-36.0); MEAN CORPUSCULAR VOLUME 91 fL (82-100); MONOCYTES # (AUTO) 0.6 /CMM (0.1-1.30); MONOCYTES % (AUTO) 11.4 % (2.0-12.0); NEUTROPHILS # (AUTO) 3.9 /CMM (1.8-8.9); NEUTROPHILS % (AUTO) 75.9 % (43.0-81.0); PLATELET COUNT (AUTO) 326 /CMM (150-450); RDW COEFFICIENT OF VARIATION 12.5 (11.5-15.0); WHITE BLOOD COUNT (AUTO) 5.1 K/uL (4.3-11.0)
[2017-07-11 07:25] LABS: CALCIUM, SERUM 8.6 mg/dL (8.5-10.1); CARBON DIOXIDE 31 mmol/L (21-32); CHLORIDE 103 mmol/L (98-107); CREATININE 0.6 mg/dL (0.6-1.3); GLUCOSE 129 mg/dL (74-106); MAGNESIUM 2.1 mg/dL (1.8-2.4); PHOSPHORUS 2.9 mg/dL (2.5-4.9); POTASSIUM 3.3 mmol/L (3.5-5.1); SODIUM SERUM 140 mmol/L (136-145); UREA NITROGEN, BLOOD 7 mg/dL (7-18)
[2017-07-11] MEDS: ACETYLCYSTEINE 10% SOLN 400 MG/4 ML VIAL NEB SCH ×2 (07:49→16:13)
[2017-07-11 08:00] VITALS: BP 130/74
--- NOTE | 2017-07-11 08:00 | NUR ---
ms rn received patient on bed, nonverbal, still on o2 mask, congested,sob noted, dnr/dni pt, saturating 97% at 10 liters,will monitor patient's condition. will monitor patient's condition.
[2017-07-11] MEDS: IV D5/0.45 NACL 1,000 ML IV PRN (09:13)
--- NOTE | 2017-07-11 11:00 | NUR ---
ms rn was seen by dr. ameena kearns/ orders made and carried out.
[2017-07-11] MEDS ORDERED: POTASSIUM CHLORIDE 20 MEQ TAB.PRT.SR PO ONE (11:15)
[2017-07-11] MEDS: Potassium Chloride 10 MEQ in IV D5W 50 ML IV SCH ×4 (15:08→20:36)
[2017-07-11 16:04] VITALS: BP 132/90
[2017-07-11] MEDS: LACTOBACILLUS RHAMNOSUS GG 1 EACH CAP.SPRINK PO SCH (17:00)
--- NOTE | 2017-07-11 18:00 | NUR ---
ms schumacher no change of condition,will monitor patient.
[2017-07-11 20:00] VITALS: BP 127/69
--- NOTE | 2017-07-11 20:42 | NUR ---
MS/RN OPENING NOTES PATIETN IN BED, LETHARGIC AND WEAK, REQUIRING OXYGEN MASK TO HELP IN BREATHING, WITH RESPIRATORY TREATMENTS, IV POTASSIUM BEING REPLACED , KEEP COMFORTABLE, , SKIN WARM TO TOUCH, WILL CONTINUE MONITORING.
[2017-07-12] MEDS: TOBRAMYCIN/DEXAMETH OPHTH DORPS 2.5 ML BOTTLE EACHEYE SCH ×6 (00:06→20:22)
[2017-07-12] MEDS: ACETYLCYSTEINE 10% SOLN 400 MG/4 ML VIAL NEB SCH ×3 (00:31→15:30)
[2017-07-12] MEDS: ALBUTEROL FS 2.5 MG/3 ML VIAL.NEB NEB SCH ×4 (00:32→20:08)
[2017-07-12] MEDS: VANCOMYCIN 1 GM in IV D5W 250 ML IV SCH ×2 (02:46→15:02)
[2017-07-12 04:00] VITALS: BP 129/69
[2017-07-12] MEDS: PIPERACILLIN /TAZOBACTAM 3.375 G in IV D5W 50 ML IV SCH ×4 (05:20→23:22)
--- NOTE | 2017-07-12 06:50 | NUR ---
324-1 PATIENT IN BED, NON VERBAL AND WEAK, HAVING SHALLOW BREATHING REQUIRING OXYGEN MASK AT 10L, REPOSTION AND TURN, KEEP COMFORTABLE, KEPT SKIN INTACT AND DRY, ADMINISTERED/REPLACED IV POTASSIUM, WILL CONITINUE TO PROVIDE CARE.
--- NOTE | 2017-07-12 07:15 | NUR ---
ms rn initial notes Received patient in bed, asleep, head of bed elevated, no SOB or distress noted, on 02 @8lpm via face mask with 02 saturation of 95%. IV intact and patent with IVF infusing well. NPO at this time due to patient condition. Kept patient clean and comfortable in bed, call light with in patient reach, will continue to monitor accordingly.
[2017-07-12 08:00] VITALS: BP 126/78
[2017-07-12 08:24] LABS: BASOPHILS % (AUTO) 1.1 % (0.0-2.0); EOSINOPHILS # (AUTO) 0.1 /CMM (0.0-0.7); EOSINOPHILS % (AUTO) 3.5 % (0.0-6.0); HEMATOCRIT 26 % (33-45); HEMOGLOBIN 9.2 g/dL (11.5-14.8); LYMPHOCYTES # (AUTO) 0.6 /CMM (0.8-4.8); LYMPHOCYTES % (AUTO) 18.8 % (20.0-44.0); MEAN CORPUSCULAR HEMOGLOBIN 31 PG (26.0-33.0); MEAN CORPUSCULAR HGB CONC 35 g/dl (31.0-36.0); MEAN CORPUSCULAR VOLUME 91 fL (82-100); MONOCYTES # (AUTO) 0.5 /CMM (0.1-1.30); MONOCYTES % (AUTO) 14.4 % (2.0-12.0); NEUTROPHILS # (AUTO) 2.1 /CMM (1.8-8.9); NEUTROPHILS % (AUTO) 62.2 % (43.0-81.0); PLATELET COUNT (AUTO) 333 /CMM (150-450); RDW COEFFICIENT OF VARIATION 12.9 (11.5-15.0); RED BLOOD CELL COUNT(AUTO) 2.92 MIL/uL (4.0-5.2); WHITE BLOOD COUNT (AUTO) 3.3 K/uL (4.3-11.0)
[2017-07-12 08:40] LABS: CALCIUM, SERUM 8.7 mg/dL (8.5-10.1); CARBON DIOXIDE 32 mmol/L (21-32); CHLORIDE 106 mmol/L (98-107); CREATININE 0.7 mg/dL (0.6-1.3); GLUCOSE 97 mg/dL (74-106); MAGNESIUM 1.9 mg/dL (1.8-2.4); POTASSIUM 3.7 mmol/L (3.5-5.1); SODIUM SERUM 143 mmol/L (136-145); UREA NITROGEN, BLOOD 6 mg/dL (7-18)
[2017-07-12] MEDS: LACTOBACILLUS RHAMNOSUS GG 1 EACH CAP.SPRINK PO SCH ×2 (09:00→17:00)
--- NOTE | 2017-07-12 09:03 | NUR ---
MS RN NOTES Held lactobacillus medication due to patient is NPO. Will continue to monitor.
[2017-07-12 16:00] VITALS: BP 117/67
--- NOTE | 2017-07-12 17:04 | NUR ---
MS RN NOTES Held lactobacillus due to patient is NPO>
--- NOTE | 2017-07-12 19:25 | NUR ---
MS RN OPENING NOTES: RECEIVED PT IN BED ON 6LPM VIA MASK. PT IS NON VERBAL AND IS LETHARGIC. PT OPENS EYES. NO FLUIDS BEING RAN AT THIS TIME. PT HAS IV ON R FOREARM #22G. BED ALARM ACTIVATED. CALL LIGHT WITHIN PT'S REACH. BED KEPT IN LOW, LOCKED POSITION, AND SIDE RAILS X 2UP. WILL CONTINUE TO MONITOR PT.
[2017-07-12 20:00] VITALS: BP 109/66
[2017-07-13] MEDS: ACETYLCYSTEINE 10% SOLN 400 MG/4 ML VIAL NEB SCH ×4 (00:22→23:30)
[2017-07-13] MEDS: ALBUTEROL FS 2.5 MG/3 ML VIAL.NEB NEB SCH ×4 (00:22→19:30)
[2017-07-13] MEDS: TOBRAMYCIN/DEXAMETH OPHTH DORPS 2.5 ML BOTTLE EACHEYE SCH ×6 (01:48→21:38)
[2017-07-13] MEDS: PIPERACILLIN /TAZOBACTAM 3.375 G in IV D5W 50 ML IV SCH ×3 (05:04→17:07)
--- NOTE | 2017-07-13 07:25 | NUR ---
ms rn initial notes Received patient in bed, awake, head of bed elevated, no SOB or distress noted, on 02 @ 6lpm via face mask 02 sat of 98%. Patient still lethargic, IV intact and patent. NPO still at this time. Kept patient clean and comfortable in bed, call light with in patient reach, will continue to monitor accordingly.
[2017-07-13 07:58] LABS: CALCIUM, SERUM 8.6 mg/dL (8.5-10.1); CARBON DIOXIDE 31 mmol/L (21-32); CHLORIDE 105 mmol/L (98-107); CREATININE 0.7 mg/dL (0.6-1.3); GLUCOSE 101 mg/dL (74-106); POTASSIUM 3.8 mmol/L (3.5-5.1); SODIUM SERUM 141 mmol/L (136-145); UREA NITROGEN, BLOOD 8 mg/dL (7-18)
[2017-07-13 08:00] VITALS: BP 121/75
--- NOTE | 2017-07-13 08:19 | NUR ---
MS RN CLOSING NOTES: ALL NEEDS WERE ATTENDED AND ANTICIPATED FOR. PT REMAINS ON 6LPM VIA MASK AND IS TOLERATING WELL. CALL LIGHT WITHIN PT'S REACH. BED KEPT IN LOW, LOCKED POSITION, AND SIDE RAILS X 3 UP. PT SUCTIONED IN BOTH NARES. BED ALARM ACTIVATED. IV REMAINS PATENT AND INTACT. ENDORSED TO AM NURSE FOR BJ.
[2017-07-13] MEDS: LACTOBACILLUS RHAMNOSUS GG 1 EACH CAP.SPRINK PO SCH ×2 (09:00→17:00)
--- NOTE | 2017-07-13 09:23 | NUR ---
ms rn notes Held PO medication due to patient is NPO.
[2017-07-13] MEDS: VANCOMYCIN 1 GM in IV D5W 250 ML IV SCH (15:22)
[2017-07-13 16:00] VITALS: BP_SYST 121; BP_SYST 136; BP_DIAS 50; BP_DIAS 75
--- NOTE | 2017-07-13 19:15 | NUR ---
ms rn closing notes All needs attended, anticipated, and provided. Kept patient clean and comfortable in bed, call light with in patient reach. Endorsed to next shift RN to continue care.
[2017-07-13 20:00] VITALS: BP 120/67
--- NOTE | 2017-07-13 20:03 | NUR ---
RN MS INITIAL NOTES Received pt laying in bed with HOB elevated. Currently receiving 6L/min of O2 via mask, saturating 94%. Pt is noted with lethargy with spontaneous eye opening. No facial grimacing or moaning noted. RFA IV intact, dressing kept clean and dry. Will reposition q2h to prevent further skin injuries and for comfort. Will continue to monitor throughout shift for continuity of care.
[2017-07-13 20:42] VITALS: BP 120/67
[2017-07-14] MEDS: PIPERACILLIN /TAZOBACTAM 3.375 G in IV D5W 50 ML IV SCH ×3 (00:20→11:04)
[2017-07-14] MEDS: TOBRAMYCIN/DEXAMETH OPHTH DORPS 2.5 ML BOTTLE EACHEYE SCH ×4 (00:21→12:22)
[2017-07-14] MEDS: ALBUTEROL FS 2.5 MG/3 ML VIAL.NEB NEB SCH ×2 (01:30→11:04)
[2017-07-14] MEDS: IV D5/0.45 NACL 1,000 ML IV PRN (05:06)
--- NOTE | 2017-07-14 06:14 | NUR ---
RN CLOSING NOTES PT REMAINS LETHARGIC, AROUSABLE TO TOUCH. RESPIRATIONS NOTED WITH LABORED BREATHING, CURRENTLY ON O2 AT 6L/MIN VIA MASK. PT NOTED WITH EPISODES OF REMOVING MASK. REMINDED PT TO KEEP MASK ON FOR COMFORT AND TO ENHANCE BREATHING. REPOSITONED Q2H TO PREVENT FURTHER SKIN INJURIES. NO FACIAL GRIMACING OR MOANING NOTED. PERIPHERAL IV TO LAC, INTACT AND PATENT. DRESSING KEPT CLEAN AND DRY. CALL LIGHT LEFT WITHIN REACH OF PT. WILL ENDORSE TO NEXT SHIFT FOR CONTINUITY OF CARE.
--- NOTE | 2017-07-14 07:05 | NUR ---
REPORT RECEIVED AT THE BEDSIDE. PATIENT IS SLEEPING. NO SOB OR DISTRESS NOTED AT THIS TIME. PATIENT DOES NOT APPEAR TO BE IN PAIN, NO FACIAL GRIMACE NOTED. BED IN A LOW POSITION, CALL LIGHT WITHIN PATIENT REACH. WILL CONTINUE TO MONITOR.
[2017-07-14 08:01] LABS: CALCIUM, SERUM 8.9 mg/dL (8.5-10.1); CARBON DIOXIDE 32 mmol/L (21-32); CHLORIDE 104 mmol/L (98-107); CREATININE 0.8 mg/dL (0.6-1.3); GLUCOSE 105 mg/dL (74-106); POTASSIUM 3.3 mmol/L (3.5-5.1); SODIUM SERUM 143 mmol/L (136-145); UREA NITROGEN, BLOOD 8 mg/dL (7-18)
[2017-07-14] MEDS: LACTOBACILLUS RHAMNOSUS GG 1 EACH CAP.SPRINK PO SCH (08:32)
--- NOTE | 2017-07-14 08:33 | NUR ---
PT IS TOO LETHARGIC TO TAKE ORAL MEDICATIONS AT THIS TIME. HELD MORNING CULTUREL. AWARE
--- NOTE | 2017-07-14 08:50 | NUR ---
STUDENT NURSES AND INSTRUCTOR TO DISPENSE AM MEDICATIONS.
[2017-07-14] MEDS: ACETYLCYSTEINE 10% SOLN 400 MG/4 ML VIAL NEB SCH (11:05)
[2017-07-14] MEDS: POTASSIUM CL. PREMIX PERIPHER. 50 ML IV SCH ×2 (11:51→12:51)
--- NOTE | 2017-07-14 12:10 | NUR ---
DAUGHTER IS REFUSING STAFF TO TAKE DISCHARGE PICTURES OF THE PATIENT'S SACRUM. STATES "THERE IS NOTHING THERE, I DON'T THINK YOU NEED TO DO THAT. SHE IS ON HOSPICE NOW AND ITS NOT DIGNIFIED." EXPLAINED THE IMPORTANCE OF THE DISCHARGE PICTURES TO THE PATIENT'S DAUGHTER, BUT SHE IS STILL REFUSING. STATES "SHE IS STAYING HERE ANYWAY AND SHE IS DYING, JUST LEAVE HER ALONE."
--- NOTE | 2017-07-14 12:58 | NUR ---
PT DISCHARGED TO INPATIENT HOSPICE. DISCHARGE PICTURES TAKEN.
== END 2017-07-14 12:53 | disposition hospice, home (50) | DRG 193 ==
LOC: ER 23:51 → MED 07-03 03:15
PROVIDERS: ADMIT Internal Medicine; ATTEND Internal Medicine
DX: J15.9 Unspecified bacterial pneumonia (principal); N17.0 Acute kidney failure with tubular necrosis; G93.41 Metabolic encephalopathy; R53.2 Functional quadriplegia; R13.10 Dysphagia, unspecified; N39.0 Urinary tract infection, site not specified; F05 Delirium due to known physiological condition; E87.1 Hypo-osmolality and hyponatremia; E86.0 Dehydration; G30.9 Alzheimer's disease, unspecified; D63.8 Anemia in other chronic diseases classified elsewhere; E87.6 Hypokalemia; B96.89 Other specified bacterial agents as the cause of diseases classified elsewhere; E83.42 Hypomagnesemia; F29 Unspecified psychosis not due to a substance or known physiological condition; F32.9 Major depressive disorder, single episode, unspecified; Z88.5 Allergy status to narcotic agent; Z88.0 Allergy status to penicillin; I10 Essential (primary) hypertension; F02.80 Dementia in other diseases classified elsewhere, unspecified severity, without behavioral disturbance, psychotic disturbance, mood disturbance, and anxiety; H10.9 Unspecified conjunctivitis; Z51.5 Encounter for palliative care; B96.20 Unspecified Escherichia coli [E. coli] as the cause of diseases classified elsewhere; K44.9 Diaphragmatic hernia without obstruction or gangrene; R53.81 Other malaise; F01.50 Vascular dementia, unspecified severity, without behavioral disturbance, psychotic disturbance, mood disturbance, and anxiety
CPT/HCPCS: 31720; 36415; 36600; 70450-TC; 71045-TC; 80048-TC; 80076-TC; 80202-TC; 81000-TC; 82140-TC; 82746; 82803-TC; 83735-TC; 84100-TC; 84443-TC; 84484-TC; 85025-TC; 87081-TC; 87086-TC; 87186-TC; 94799-TC; A4216; A4606; A9563; J1956; J2543; J3370; J3475; J3480; J3490; J7030; J7042; J7060; Z7610

== ENCOUNTER 2017-07-13 17:30 | Inpatient (IN) | payer OTHER ==
[~2017-07-13] VITALS: Ht 142.2 cm; Wt 49.4 kg
--- NOTE | 2017-07-14 13:00 | NUR ---
PT MOVED TO INPATIENT HOSPICE.
--- NOTE | 2017-07-14 15:26 | NUR ---
RECEIVED A CALL FROM BAO SHETH. DOMENIC ASKS TO KEEP THE PATIENT ON THE SAME FLUIDS SHE HAD PRIOR TO HOSPICE DISCHARGE. D5 1/2 NS AT 50 ML/HR ORDERED.
[2017-07-14] MEDS ORDERED: Z GUARD REMEDY 4 OZ OINT TP PRN (16:00)
[2017-07-14] MEDS ORDERED: ONDANSETRON HCL/PF 4 MG/2 ML VIAL IVP PRN (17:30)
[2017-07-14] MEDS ORDERED: ACETAMINOPHEN 650 MG/SUPP.RECT RC PRN (17:30)
[2017-07-14] MEDS ORDERED: Z GUARD REMEDY 2 OZ OINT TP PRN (17:30)
[2017-07-14] MEDS ORDERED: HYDROMORPHONE 1 MG/1 ML DISP.SYRIN IV PRN (18:00)
--- NOTE | 2017-07-14 18:43 | NUR ---
NO SIGNIFICANT CHANGES IN PATIENT CONDITION THROUGHOUT THE SHIFT. NO SOB OR DISTRESS NOTED AT THIS TIME. PATIENT DOES NOT APPEAR TO BE IN PAIN, CALM WITH NO FACIAL GRIMACE. BED IN A LOW POSITION, CALL LIGHT WITHIN PATIENT REACH. WILL ENDORSE FOR BJ.
[2017-07-14 20:00] VITALS: BP 141/86
--- NOTE | 2017-07-14 20:01 | NUR ---
COMFORT/CARE/RN RECEIVED REPORT FROM AM RN FOR HOSPICE CARE, MONITORING AND KEEPING PATIENT COMFORTABLE,ASSIST AND REPOSITION, ON OXYGEN MASK AT 6L, WILL CONTINUE TO MONITOR. BED IN LOCK POSITION.
[2017-07-14 20:54] VITALS: BP 141/86
[2017-07-14] MEDS: FAMOTIDINE/PF INJ 20 MG/2 ML VIAL IV SCH (21:28)
--- NOTE | 2017-07-15 04:00 | NUR ---
MS/RN NOTES PATIENT IN HOB ELEVATED, OBDERVE INABILITY TO RELAX WITH GRIMACE AND GUARDING, RECHECK AND MONITOR.DILAUDID IVP GIVEN WI// COMX
[2017-07-15] MEDS: IV D5/0.45 NACL 1,000 ML IV PRN ×2 (04:09→23:58)
--- NOTE | 2017-07-15 06:23 | NUR ---
324-1 MS/RN NOTES PATIENT IN BED, EXTENSIVE ASSISTANCE, ON COMFORT MEASURES, ORAL CARE DONE, NEEDED PAIN MGMT, REPOSITION FOR COMFORT.
[2017-07-15 08:00] VITALS: BP 147/99
--- NOTE | 2017-07-15 08:00 | NUR ---
RN OPENING NOTES RECEIVED PATIENT COMFORTABLY IN BED AWAKE NON VERBAL.NO ACUTE DISTRESS NOTED. BREATHING UNLABORED. IV ACCESS PATENT AND INTACT. HOB ELAVATED. SAFETY MEASURES IN PLACE. CALL LIGHT WITHIN REACH. WILL CONITNUE TO MONITOR ACCORDINGLY.
[2017-07-15] MEDS: FAMOTIDINE/PF INJ 20 MG/2 ML VIAL IV SCH ×2 (08:44→23:48)
--- NOTE | 2017-07-15 09:45 | NUR ---
RN NOTES ST EVALUATION DONE, PATIENT REMAIN NPO.
[2017-07-15] MEDS ORDERED: HYDROMORPHONE 1 MG/1 ML DISP.SYRIN IV PRN (11:00)
[2017-07-15] MEDS ORDERED: SCOPOLAMINE HBR 1 EA PATCH.TD72 TD SCH (11:00)
[2017-07-15] MEDS: HYDROMORPHONE 1 MG/1 ML DISP.SYRIN IV PRN (11:13)
[2017-07-15 16:00] VITALS: BP 144/75
--- NOTE | 2017-07-15 18:30 | NUR ---
RN CLOSING NOTES PATIENT COMFORTABLY IN BED EYES CLOSED, OPENS EYES SPONTANEOUSLY. RESPONSIVE TO VERBAL AND TACTILE STIMULI. NON VERBAL. NO SOB NOTED. NO ACUTE DISTRESS NOTED. BREATHING UNLABORED. IV ACCESS PATENT AND INTACT. HOB ELAVATED. SAFETY MEASURES IN PLACE. DUE MEDICATIONS GIVEN , NO ASE NOTED. NEEDS ATTENDED. CALL LIGHT WITHIN REACH. WILL ENDORSE TO INSIDE TECHNICAL SALES REPRESENTATIVE FOR CONTINUITY OF CARE.
--- NOTE | 2017-07-15 19:30 | NUR ---
[facility] HOSPICE/RN RECEIVE PATIENT EYES OPEN, NON VERBAL, COMFORTABLE, NO DISTRESS NOTED, IVF INFUSING, WILL MONITOR.
[2017-07-15 20:16] VITALS: BP 133/73
--- NOTE | 2017-07-16 00:47 | NUR ---
HOSPICE/RN STILL AWAKE, NO DISTRESS NOTED, NO CHANGE IN CONDITION. WILL CONTINUE TO MONITOR.
--- NOTE | 2017-07-16 07:00 | NUR ---
HOSPICE/RN PATIENT AWAKE, COMFORTABLE, NO CHANGE IN CONDITION. ALL NEEDS ATTENDED AT THIS TIME. WILL CONTINUE TO MONITOR.
--- NOTE | 2017-07-16 07:00 | NUR ---
[employer] FARMER OPENING NOTES RECEIVED PATIENT COMFORTABLY IN BED, EYES OPEN SPONTANEOUSLY. NON VERBAL.NO ACUTE DISTRESS NOTED. BREATHING UNLABORED. IV ACCESS PATENT , INTACT INFUSING WELL. SAFETY MEASURES IN PLACE. HOB ELAVATED. CALL LIGHT WITHIN REACH. WILL CONITNUE TO MONITOR ACCORDINGLY.
[2017-07-16 08:00] VITALS: BP 134/92
[2017-07-16] MEDS: FAMOTIDINE/PF INJ 20 MG/2 ML VIAL IV SCH (09:22)
[2017-07-16] MEDS: HYDROMORPHONE 1 MG/1 ML DISP.SYRIN IV PRN ×2 (09:24→12:12)
--- NOTE | 2017-07-16 10:00 | NUR ---
MS RN NOTES ST EVALUATION DONE CONTINUE NPO.
[2017-07-16 12:00] VITALS: BP 132/82
[2017-07-16 16:00] VITALS: BP 121/68
--- NOTE | 2017-07-16 18:30 | NUR ---
RN CLOSING NOTES PATIENT IN BED EYES CLOSED, OPENS EYES SPONTANEOUSLY. NON VERBAL. NO SOB NOTED. NO ACUTE DISTRESS NOTED. BREATHING UNLABORED. IV ACCESS PATENT AND INTACT. SAFETY MEASURES IN PLACE. DUE MEDICATIONS GIVEN , NO ASE NOTED. NEEDS ATTENDED. KEPT COMFORTABLE. CALL LIGHT WITHIN REACH. WILL ENDORSE TO DIRECTOR COLLEGE FOR CONTINUITY OF CARE.
--- NOTE | 2017-07-16 19:23 | NUR ---
HOSPICE/RN RECEIVED PATIENT NOTED TO BE PALE, NOT BREATHING, NO PALPABLE PULSE SKIN COOL TO TOUCH, NO HEARTBEAT. SCABBLER MADE AWARE. PATIENT IS DNR/DNI, ON HOSPICE. PRONOUNCED PATIENT AT THIS TIME.
--- NOTE | 2017-07-16 19:40 | NUR ---
WIPER BLENDER NOTES NOTIFIED HOT BLASTER YARELI SHETH AND NOTIFIED [facility] PATIENT HAS THEY WILL CALL BACK, CALLED [place] THE DAUGHTER MADE AWARE SAID SHE DON'T KNOW WHAT TO DO YET JUST UPDATE HER WHEN HOSPICE GAVE INFORMATION. CALLED [facility] SPOKE WITH WANDA SAID HE WILL CALL BACK. NOTIFIED DIANE BIOLOGICAL TECHNICAL OFFICER MADE. ENDORSED TO PROTOTYPE ENGINEER.
--- NOTE | 2017-07-16 20:00 | NUR ---
HOSPICE/RN RECEIVED A CALL FROM [facility] OF [facility] INFORMING THAT THE CASE IS CLOSE.
--- NOTE | 2017-07-16 20:11 | NUR ---
HOSPICE/RN SPOKE TO CURT, DAUGHTER, WHO SAID SHE IS NOT COMING. I TOLD HER THAT THE BODY WILL BE S[facility] AND THAT SHE CAN CALL THE HOSPITAL IN THE MORNING. DAUGHTER WAS AGREEABLE TO THE PLAN.
--- NOTE | 2017-07-16 22:31 | NUR ---
HOSPICE/RN ACCOMPANIED THE BODY DOWN TO THE [facility] PER PROTOCOL.
== END 2017-07-16 19:23 | disposition expired | DRG 720 ==
LOC: HOSPICE 17:30
PROVIDERS: ADMIT Nurse Practitioner Acute Care; ATTEND Nurse Practitioner Acute Care
DX: A41.9 Sepsis, unspecified organism (principal); J18.9 Pneumonia, unspecified organism; F03.90 Unspecified dementia, unspecified severity, without behavioral disturbance, psychotic disturbance, mood disturbance, and anxiety; N39.0 Urinary tract infection, site not specified; R13.10 Dysphagia, unspecified; Z66 Do not resuscitate; Z51.5 Encounter for palliative care; I10 Essential (primary) hypertension; R62.7 Adult failure to thrive; Z79.899 Other long term (current) drug therapy
CPT/HCPCS: 92611-TC; J1170; J3490; J7042